=== PATIENT | female | born 1980 | race Caucasian/White ===

== ENCOUNTER → 2016-06-07 | Outpatient (CLI) | payer BC ==
[2016-06-07 12:43] LABS: ALT 139 U/L (9-52); AST 102 U/L (14-36); Alkaline Phosphatase 138 U/L (38-126); Bilirubin, Delta 0.3 mg/dL (0.0-0.2); Total Bilirubin 0.6 mg/dL (0.2-1.3); Total Protein 7.4 g/dL (6.3-8.2)
[2016-06-07 13:06] LABS: Hepatitis B Surface Ag Index 0.08
[2016-06-07 13:12] LABS: Hepatitis B Core IgM Index 0.03
[2016-06-07 13:24] LABS: Hepatitis C Virus IgG Index 0.12
[2016-06-07 13:29] LABS: Hepatitis C Virus IgG Ab Negative (Negative)
== END | disposition home or self-care (01) ==
LOC: LABWHC1 11:54
PROVIDERS: ATTEND Physician Assistant
DX: R74.8 Abnormal levels of other serum enzymes (principal)
CPT/HCPCS: 36415; 80074; 80076